=== PATIENT | female | born 1970 | race Caucasian/White ===

== ENCOUNTER 2021-04-25 14:56 | Emergency (ER) | payer OTHER, MEDICAID ==
[~2021-04-25] VITALS: Ht 165.1 cm; Wt 81.7 kg
[2021-04-25 16:06] LABS: HEMATOCRIT 51.7 % (37.0-47.0); HEMOGLOBIN 17.4 gm/dL (12.0-15.0); MCH 29.9 pg (26.0-34.0); MCHC 33.7 g/dL (28.0-37.0); MCV 88.7 fL (80.0-100.0); MPV 7.1 fl. (7.2-11.1); RBC 5.83 mil/uL (4.20-5.00); RDW-CV 13.2 % (10.5-14.5); WBC 11.8 thou/uL (4.0-11.0)
[2021-04-25 16:18] LABS: CALCIUM 8.7 mg/dL (8.5-10.1); CREATININE 0.6 mg/dL (0.6-1.3); POTASSIUM 4.3 mmol/L (3.5-5.1)
[2021-04-25 17:40] VITALS: BP 144/72
== END 2021-04-25 17:40 | disposition home or self-care (01) ==
LOC: M.ERS 14:56
PROVIDERS: Emergency Medicine Emergency Medical Services
DX: R51.9 Headache, unspecified (principal); R11.0 Nausea; R22.0 Localized swelling, mass and lump, head; Z88.1 Allergy status to other antibiotic agents